=== PATIENT | female | born 2000 | race Caucasian/White ===

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

== ENCOUNTER 2022-06-03 11:53 | Outpatient (CLI) | payer MEDICAID, SELFPAY ==
--- NOTE | 2022-06-03 11:45 | US_ITS ---
WS: [id number] ULTRASOUND LEFT BREAST HISTORY: N63.22 - Unspecified lump in the left breast, upper inner..., Breast-feeding. COMPARISON: None available. TECHNIQUE: 2-D and Doppler. There are no masses or evidence for mastitis. No duct dilatation or shadowing. No skin thickening. By ultrasound there is no significant abnormality in the region indicated by the patient at 11:00. US/US breast LT limited* [id number] IMPRESSION: BI-RADS: 1-Negative FOLLOW-UP: Age 41
== END 2022-06-03 11:54 | disposition home or self-care (01) ==
PROVIDERS: Visit Provider Registered Nurse
DX: N63.22 Unspecified lump in the left breast, upper inner quadrant (principal)
CPT/HCPCS: 76642